=== PATIENT | male | born 1945 | race Caucasian/White ===

== ENCOUNTER 2017-04-05 04:13 | Inpatient (IN) | payer OTHER ==
[~2017-04-05] VITALS: Ht 175.3 cm; Wt 90.2 kg
[2017-04-05] VITALS (9 sets, daily range): BP systolic 135–209; BP diastolic 68–115; PULSE 59–76; TEMP 36.3–36.9; O2SAT 97; Ht 175.3 cm; Wt 90.2 kg
[~2017-04-05 04:13] MED LIST: ALLO300T2 PO
[2017-04-05] MEDS ORDERED: METOPROLOL TARTRATE 1 MG/ML VIAL IV STA (04:30)
[2017-04-05] MEDS ORDERED: NITROGLYCERIN OINT 2% 1GM PACKET EXT ONE (04:30)
[2017-04-05 04:39] LABS: BASO % 0.4 %; BASO ABS # 0.02 K/uL (0-0.2); COMPLETE YES; EOS % 1.2 %; HEMATOCRIT 43.3 % (42-52); IG% 0.4 %; LYMPH % 37.3 %; LYMPH ABS # 2.11 K/uL (1.2-3.4); MEAN CORPUSCULAR HEMOGLOBIN 33.3 pg (25-34); MONO % 6.5 %; NEUT % 54.2 %; PLATELET COUNT 190 K/uL (130-400); RED BLOOD COUNT 4.81 M/uL (4.7-6.1); WHITE BLOOD COUNT 5.65 K/uL (4.8-10.8)
[2017-04-05 05:07] LABS: INR 0.9 (0.9-1.1); PROTHROMBIN TIME (PATIENT) 9.4 SECONDS (9.0-12.0)
[2017-04-05 05:13] LABS: BUN/CREATININE RATIO 14.6 (10-20); CALCIUM 8.7 mg/dl (8.5-10.1); CREATININE 1.3 mg/dl (0.60-1.40); THYROID STIMULATING HORMONE 4.28 uIu/ml (0.300-4.500)
[2017-04-05 05:39] LABS: ALB/GLOB RATIO 1.2 (0.9-2); MAGNESIUM 1.9 mg/dl (1.8-2.4); POTASSIUM 3.6 mmol/L (3.5-5.1)
[2017-04-05] MEDS ORDERED: LORAZEPAM 2 MG/ML 1 ML VIAL IV PRN (06:15)
[2017-04-05] MEDS ORDERED: ACETAMINOPHEN 325 MG TAB PO PRN (06:15)
[2017-04-05] MEDS ORDERED: TRAMADOL HCL 50 MG TAB PO PRN (06:15)
[2017-04-05] MEDS ORDERED: ONDANSETRON INJ 2 MG/ML 2 ML VIAL IV PRN (06:15)
[2017-04-05] MEDS ORDERED: MoRPHine SULFATE 4 MG/ML 1 ML CARP\\VIAL IV PRN (06:15)
[2017-04-05] MEDS ORDERED: NITROGLYCERIN 0.4 MG SL PER TAB CHARGE SL PRN (06:15)
--- NOTE | 2017-04-05 06:16 | EMERGENCY ROOM VISIT NOTE ---
History First contact with patient: 04:22 Chief Complaint: CHEST PAIN Stated Complaint: CHEST PAIN Nursing Triage Summary: patient states had midsternal chest pain and sweats that started around 0300. CP went away and came back shortly after. pain does not radiate. states patient was having SOB for last few weeks as well History of Present Illness The patient is a 71 year old male who presents to the Emergency Room with complaints of midsternal chest pain and diaphoresis that began about 90 minutes prior to arrival. The patient states that he woke up to use the bathroom, and developed this pain shortly thereafter. The pain did not radiate to the neck, but he did state there may have been some strain sensation in his left arm. The patient states that this began around 3 AM, and he lay back down. The patient's symptoms persisted at 4 AM, however now they were worse. He took several regular strength aspirin and now presents to the ER for evaluation. The patient himself does not have a history of cardiac disease or diabetes, but admittedly he does not regularly follow with his doctor either. The patient has a strong family history of cardiac disease with his father having his first heart attack in his early 60s. The patient does not have headache, neck pain, dizziness, or abdominal pain. He has not had symptoms like this in the past. His discomfort is improved from his initial pain, but is still rated a 6/10. Review of Systems More than 10 systems were reviewed and otherwise negative with the exception of history of present illness. Past Medical/Surgical History Medical Problems: (1) Chest pain (2) Hypertensive urgency (3) No Known Active Medical Problems Family History No pertinent family history Family history of cardiac disease Social History Smoking Status: Never Smoker Marital Status: Housing Status: lives with family Current/Historical Medications Scheduled PRN Allopurinol (Zyloprim), 300 MG PO DAILY PRN for gout flares Physical Exam Vital Signs Date Time Temp Pulse Resp B/P (MAP) Pulse Ox O2 Delivery O2 Flow Rate FiO2 04/05/17 05:30 159/90 04/05/17 05:16 158/91 04/05/17 05:13 73 18 94 Room Air 04/05/17 05:01 166/97 04/05/17 04:56 163/92 04/05/17 04:51 165/94 04/05/17 04:46 177/90 04/05/17 04:43 79 16 95 Room Air 04/05/17 04:41 176/99 04/05/17 04:38 193/94 04/05/17 04:34 198/110 04/05/17 04:30 Room Air 04/05/17 04:30 81 193/94 04/05/17 04:23 96 04/05/17 04:22 Room Air 04/05/17 04:22 36.5 94 18 217/113 96 Room Air 04/05/17 04:21 217/113 Physical Exam VITALS: Vitals are noted on the nurse's note and reviewed by myself. Vital signs with notable hypertension and mild tachycardia GENERAL: Well-developed, well-nourished, white male, resting comfortably in his emergency department bed. He is cooperative with the examination. NECK: Supple without nuchal rigidity. No lymphadenopathy. No thyromegaly. Cervical spine is nontender. HEART: Regular rate and rhythm without murmurs gallops or rubs. LUNGS: Clear to auscultation bilaterally without wheezes, rales or rhonchi. No retractions or accessory muscle use. ABDOMEN: Positive normal bowel sounds x 4. Soft, nontender, without masses or organomegaly. No guarding or rebound tenderness. MUSCULOSKELETAL: No muscle atrophy, erythema, or edema noted. Full range of motion without joint tenderness in all extremities Medical Decision & Procedures Laboratory Results 04/05/17 04:25 Red Blood Count 4.81, Mean Corpuscular Volume 90.0, Mean Corpuscular Hemoglobin 33.3, Mean Corpuscular Hemoglobin Concent 37.0, Mean Platelet Volume 10.0, Neutrophils (%) (Auto) 54.2, Lymphocytes (%) (Auto) 37.3, Monocytes (%) (Auto) 6.5, Eosinophils (%) (Auto) 1.2, Basophils (%) (Auto) 0.4, Neutrophils # (Auto) 3.06, Lymphocytes # (Auto) 2.11, Monocytes # (Auto) 0.37, Eosinophils # (Auto) 0.07, Basophils # (Auto) 0.02 04/05/17 04:25 Test 04/05/17 04:25 04/05/17 04:31 White Blood Count 5.65 K/uL (4.8-10.8) Red Blood Count 4.81 M/uL (4.7-6.1) Hemoglobin 16.0 g/dL (14.0-18.0) Hematocrit 43.3 % (42-52) Mean Corpuscular Volume 90.0 fL (80-100) Mean Corpuscular Hemoglobin 33.3 pg (25-34) Mean Corpuscular Hemoglobin Concent 37.0 g/dl (32-36) Platelet Count 190 K/uL (130-400) Mean Platelet Volume 10.0 fL (7.4-10.4) Neutrophils (%) (Auto) 54.2 % Lymphocytes (%) (Auto) 37.3 % Monocytes (%) (Auto) 6.5 % Eosinophils (%) (Auto) 1.2 % Basophils (%) (Auto) 0.4 % Neutrophils # (Auto) 3.06 K/uL (1.4-6.5) Lymphocytes # (Auto) 2.11 K/uL (1.2-3.4) Monocytes # (Auto) 0.37 K/uL (0.11-0.59) Eosinophils # (Auto) 0.07 K/uL (0-0.5) Basophils # (Auto) 0.02 K/uL (0-0.2) RDW Standard Deviation 42.1 fL (36.4-46.3) RDW Coefficient of Variation 13.0 % (11.5-14.5) Immature Granulocyte % (Auto) 0.4 % Immature Granulocyte # (Auto) 0.02 K/uL (0.00-0.02) Prothrombin Time 9.4 SECONDS (9.0-12.0) Prothromb Time International Ratio 0.9 (0.9-1.1) Activated Partial Thromboplast Time 26.8 SECONDS (21.0-31.0) Partial Thromboplastin Ratio 1.0 Anion Gap 9.0 mmol/L (3-11) Est Creatinine Clear Calc Drug Dose 57.2 ml/min Estimated GFR () 62.7 Estimated GFR (Non- 54.1 BUN/Creatinine Ratio 14.6 (10-20) Calcium Level 8.7 mg/dl (8.5-10.1) Magnesium Level 1.9 mg/dl (1.8-2.4) Total Bilirubin 0.5 mg/dl (0.2-1) Aspartate Amino Transf (AST/SGOT) 40 U/L (15-37) Alanine Aminotransferase (ALT/SGPT) 54 U/L (12-78) Alkaline Phosphatase 105 U/L (45-117) Total Protein 7.6 gm/dl (6.4-8.2) Albumin 4.2 gm/dl (3.4-5.0) Globulin 3.4 gm/dl (2.5-4.0) Albumin/Globulin Ratio 1.2 (0.9-2) Lipase 121 U/L (73-393) Thyroid Stimulating Hormone (TSH) 4.280 uIu/ml (0.300-4.500) Chemistry Specimen Hemolysis Bedside Troponin I 0.030 ng/ml (0-0.045) Medications Administered Medications (Trade) Dose Ordered Sig/Hosea Route Start Time Stop Time Status Last Admin Dose Admin Nitroglycerin (Nitroglycerin 2% Oint) 1 inch NOW ONCE EXT 04/05/17 04:30 04/05/17 05:59 DC 04/05/17 04:30 1 INCH Metoprolol Tartrate (Lopressor Iv) 5 mg NOW STAT IV 04/05/17 04:30 04/05/17 04:31 DC 04/05/17 04:30 5 MG ED Course Physical exam and history were performed. Nursing notes, EMR, and Medication List were personally reviewed. Patient appears to have chest pain symptoms for the past 90 minutes. EKG was performed and was sinus tachycardia at just over 100 beats per minute. More concerning is the patient appears to have ischemic findings in the lateral leads. IV access was established and labs were obtained. The patient was given 1 inch Nitropaste and 5 mg IV Lopressor. He was hydrated with normal saline and placed on the cardiac technologist. Chest x-ray was performed and does not show acute findings. The case was immediately discussed with my attending physician, Dr. Marcus, who also independently evaluated the patient and remain closely involved in patient care and decision making. The patient's blood work is as above and was reviewed. He does not have a significantly elevated white blood cell count, gross anemia, bandemia, or significant electrolyte imbalance. Lipase and transaminases are nondiagnostic. Troponin 1 is negative. Roughly 40 minutes after the first EKG and initiation of Nitropaste and Lopressor the patient had significant improvement of his blood pressure, which remained in the 160s over 90s. A second EKG was performed 40 minutes after the first, and this did show essentially resolution of the ST abnormalities that were initially appreciated. Overall there is concern the patient may be exhibiting unstable angina. We have a strong concern for impending cardiac event, and the patient does not appear well for discharge home. The case was discussed with the on-call hospitalist, Dr. Kahn, who agreed to evaluate the patient here in the department. Evidently Dr Kahn will be involving cardiology this morning regarding the patient. Please see their dictation for further patient course and disposition. The chart was completed utilizing [employer] Speech Voice Recognition Software. Grammatical errors, random word insertions, pronoun errors, and incomplete sentences are an occasional consequence of this system due to software limitations, ambient noise, and hardware issues. Any formal questions or concerns about the content, text, or information contained within the body of this dictation should be directly addressed to the provider for clarification. . Medical Decision Differential diagnosis includes, but is not limited to: Myocardial infarction, dysrhythmia, pericarditis, pneumothorax, aortic aneurysm/dissection, DVT/PE, anxiety, GERD, PUD, electrolyte imbalance, thyroid disorder, pneumonia, bronchitis, pancreatitis, and others [place] Drug Monitoring Program Search Results: patient reviewed within database, no issues identified Medication Reconcilliation Current Medication List: was personally reviewed by me Blood Pressure Screening Patient's blood pressure: Elevated blood pressure Impression Primary Impression: Central chest pain Additional Impressions: Hypertensive urgency EKG abnormalities Departure Information Referrals Jerry Landeros D.O. (PCP) Patient Instructions [facility] Problem Qualifiers
--- NOTE | 2017-04-05 07:08 | HISTORY & PHYSICAL EXAMINATION ---
DATE OF ADMISSION: 04/05/2017 PRIMARY CARE DOCTOR: Dr. Landeros (although he has not met him) (Last PCP visit was in April 2014. Last PCP has since retired.) CHIEF COMPLAINT: Chest pain. HISTORY OF PRESENT ILLNESS: History is obtained from the patient records. Medical history is significant for borderline hypertension as per patient, hyperlipidemia, gout as per records. This morning, the patient woke up with substernal chest discomfort non-radiating , better with taking deep breaths, some shortness of breath and diaphoresis. He took some aspirin at home. At the Emergency Room, systolic blood pressure 210s. Relief of chest pain with Lopressor and nitroglycerin. Admits to some shortness of breath on exertion of late. As per the patient's , some intake of potato chips. Patient's also says the patient stops breathing during sleep from time to time. MEDICAL HISTORY: As above. April 2013, stress echo for a physical was negative for inducible ischemia, mildly increased LV wall thickness, EF 55%. SURGERIES: orthopedic procedure. HOME MEDICATIONS: Allopurinol. ALLERGIES: No known drug allergies. FAMILY HISTORY: Heart disease, peripheral vascular disease. 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 REVIEW OF SYSTEMS: As per HPI. all other ROS negative. PHYSICAL EXAMINATION: VITAL SIGNS: Blood pressure was noted to be 217/113, later 159/90, pulse rate 70, RR 18, temperature 36.5, sats 96 on room air. GENERAL: Noted to be obese, slightly anxious, no distress. SKIN: Normal color. HEENT: Partial alopecia. Pale palpebral conjunctivae. Dry mucosa. NECK: No JVD. Supple. CHEST: Clear to auscultation. HEART: Regular rate and rhythm. ABDOMEN: Soft. EXTREMITIES: No edema, no tenderness. NEUROLOGIC: No gross focality. LABORATORY DATA: Hemoglobin was noted to be 16, hematocrit 40.2, white cell count 5.6, platelets 190. Sodium 140, potassium 3.6, chloride 108, CO2 24, BUN 19, creatinine 1.3, glucose 127. Troponin 0.03. IMAGING: Chest x-ray as per my interpretation, cardiomegaly. EKG as per my interpretation, normal sinus rhythm, ST depression on the lateral leads. ASSESSMENT: 1. Chest pain likely from hypertensive urgency HTN likely long-standing with cardiomegaly on chest x-ray and LVH from 2013 stress echo ? acute coronary syndrome. 2. Possible sleep-disordered breathing 3. Hyperlipidemia as per records. PLAN: Observation PCU Initiate lisinopril for blood pressure control Aspirin for CAD prevention until ACS ruled out follow troponin, 2D echo, chest pain. [facility] Cardio consult for chest pain as per the patient/family request Outpatient sleep study Check lipid profile DVT prophylaxis, Lovenox subQ. Full code. MTDD
[2017-04-05] MEDS ORDERED: POTASSIUM CHLORIDE 10 MEQ TABCR PO ONE (08:00)
[2017-04-05] MEDS ORDERED: LISINOPRIL 5 MG TAB PO ONE (08:00)
[2017-04-05] MEDS ORDERED: LACTATED RINGER'S 1000ML 1,000 ML IV ONE (08:00)
--- NOTE | 2017-04-05 08:06 | DIAGNOSTIC IMAGING REPORT ---
CHEST ONE VIEW PORTABLE HISTORY: Atypical chest pain COMPARISON: Chest 04/08/2016. FINDINGS: No pleural effusions. No pneumothorax. The lungs are clear. No evidence for pulmonary edema. The heart remains borderline enlarged. IMPRESSION: No significant change compared to the prior study. No acute process. Electronically signed by: Navi Francisco M.D. 04/05/2017 8:05 AM Dictated Date/Time: 04/05/2017 8:04 AM
[2017-04-05] MEDS ORDERED: ENOXAPARIN 40 MG/0.4 ML SYR SC SCH (09:00)
[2017-04-05] MEDS ORDERED: PERFLUTREN LIPID MICROSPHERE (DEFINITY) IV ONE (09:44)
[2017-04-05] MEDS ORDERED: LISINOPRIL 10 MG TAB PO ONE (10:45)
--- NOTE | 2017-04-05 11:03 | CARDIOLOGY CONSULTATION ---
DATE OF CONSULTATION: 04/05/2017 CONSULTATION FOR: [facility] REASON FOR CONSULTATION: Chest pain. HISTORY OF PRESENT ILLNESS: This is a 71-year-old male with no prior history of heart disease. Early this morning, he awoke with what he describes as severe retrosternal chest discomfort that lasted for several hours before presenting to the Emergency Department. His first EKG suggests possible ST segment depressions in the lateral leads consistent with ischemia. He also has Q-waves in the inferior leads which may suggest an old inferior wall infarct, although the patient states that his EKG has been normal in the past. Of note, also is that his second EKG in the Emergency Department shows no ST changes. He has been pain free since admission. He denies diabetes or hypercholesterolemia. He also denies hypertension but on presentation to the Emergency Department, he was markedly hypertensive. He relates a strong family history of heart disease. ALLERGIES: No known medical allergies. PAST MEDICAL HISTORY: As outlined above, the patient has no significant cardiac history. He denies hypertension, but was markedly hypertensive in the office. He has no history of diabetes, kidney disease or strokes. He states that he has occasional gout. SOCIAL HISTORY: The patient never smoked. FAMILY MEDICAL HISTORY: As outlined above, multiple members of his paternal family have history of heart disease. REVIEW OF SYSTEMS: A 10-point review of systems is negative except for the history of chief complaint. PHYSICAL EXAMINATION: GENERAL: He is alert and oriented, in no acute distress. VITAL SIGNS: Blood pressure is 166/98, pulse is regular at 78 beats per minute and he is afebrile. HEENT: Normocephalic. Pupils are equal and reactive to light. Extraocular muscles intact bilaterally. NECK: The neck veins are flat. Carotids have good upstrokes bilaterally without bruits. Thyroid is nonpalpable. RESPIRATORY: Breath sounds equal bilaterally and clear to auscultation. CARDIOVASCULAR: Heart has regular rhythm. Normal S1, S2. No S3, S4. No cardiac rubs or murmurs. GASTROINTESTINAL: Abdomen is soft, nontender without organomegaly. EXTREMITIES: Free of edema, digit clubbing, or cyanosis. NEUROLOGIC: Grossly intact. SKIN: Warm to touch. LYMPH NODES: Negative to palpation. LABORATORY DATA: First set of cardiac markers are negative. IMPRESSION: 1. Chest pain. 2. Hypertension. RECOMMENDATIONS: If the second set of cardiac markers is negative, then I felt comfortable we can proceed with a screening exercise stress echocardiogram. We will review the resting study before he will exercise on a treadmill. I suspect that he has had a long history of undertreated hypertension and his chest pain may be due to demand ischemia.
--- NOTE | 2017-04-05 11:32 | Progress Note ---
Internal Med Progress Note Date of Service: Apr 05, 2017. Provider Documentation: SUBJECTIVE: Seen and examined at bedside Denies chest pain, SOB, dizziness Has mild headache, denies blurry vision Family at bedside OBJECTIVE: Vital Signs-as noted below Physical Exam: General Appearance:Moderately built and nourished, no apparent distress Head: normocephalic, Atraumatic Eyes: normal inspection, EOMI, PERRL Neck: supple, Trachea midline Respiratory/Chest: Normal breath sounds, CTA Cardiovascular: S1, S2, No murmur Abdomen/GI:Soft, Non tender, Bowel sounds present Extremities/Musculoskelatal:normal inspection, no edema Neurologic/Psych:grossly no focal neurological deficits Skin: normal color, warm Lab data as noted below. ASSESSMENT & PLAN: Hypertensive Urgency Chest Pain Presented with chest pain and ST depression in lateral leads which normalized on repeat EKG Troponin: 0.03, 1.2 likely demand Ischemia cardiac enzymes trending up May need stress test Continue lisinopril Appreciate cardiology input Plan for cardiac cath tomorrow AM May need sleep study as outpatient Hyperlipidemia as per records. Lipid panel pending H/O Gout: Stable since many years Not on meds currently DVT px: Lovenox subQ. Code Status: Full code Disposition: Monitor in Tele Vital Signs: Date Time Temp Pulse Resp B/P (MAP) Pulse Ox O2 Delivery O2 Flow Rate FiO2 04/05/17 13:52 62 135/68 (90) 04/05/17 12:00 Room Air 04/05/17 10:55 75 209/115 (146) 04/05/17 07:30 36.4 76 18 190/96 Room Air 04/05/17 06:35 67 14 96 Room Air 04/05/17 06:31 166/98 04/05/17 06:05 78 15 96 Room Air 04/05/17 06:01 173/88 04/05/17 05:46 170/91 04/05/17 05:35 65 20 94 Room Air 04/05/17 05:30 159/90 04/05/17 05:16 158/91 04/05/17 05:13 73 18 94 Room Air 04/05/17 05:01 166/97 04/05/17 04:56 163/92 04/05/17 04:51 165/94 04/05/17 04:46 177/90 04/05/17 04:43 79 16 95 Room Air 04/05/17 04:41 176/99 04/05/17 04:38 193/94 04/05/17 04:34 198/110 04/05/17 04:30 Room Air 04/05/17 04:30 81 193/94 04/05/17 04:23 96 04/05/17 04:22 Room Air 04/05/17 04:22 36.5 94 18 217/113 96 Room Air 04/05/17 04:21 217/113 04/05/17 00:00 60 170/92 (118) Lab Results: Results Past 24 Hours Test 04/05/17 04:25 04/05/17 04:31 04/05/17 10:24 04/05/17 12:10 Range/Units White Blood Count 5.65 4.8-10.8 K/uL Red Blood Count 4.81 4.7-6.1 M/uL Hemoglobin 16.0 14.0-18.0 g/dL Hematocrit 43.3 42-52 % Mean Corpuscular Volume 90.0 80-100 fL Mean Corpuscular Hemoglobin 33.3 25-34 pg Mean Corpuscular Hemoglobin Concent 37.0 32-36 g/dl Platelet Count 190 130-400 K/uL Mean Platelet Volume 10.0 7.4-10.4 fL Neutrophils (%) (Auto) 54.2 % Lymphocytes (%) (Auto) 37.3 % Monocytes (%) (Auto) 6.5 % Eosinophils (%) (Auto) 1.2 % Basophils (%) (Auto) 0.4 % Neutrophils # (Auto) 3.06 1.4-6.5 K/uL Lymphocytes # (Auto) 2.11 1.2-3.4 K/uL Monocytes # (Auto) 0.37 0.11-0.59 K/uL Eosinophils # (Auto) 0.07 0-0.5 K/uL Basophils # (Auto) 0.02 0-0.2 K/uL RDW Standard Deviation 42.1 36.4-46.3 fL RDW Coefficient of Variation 13.0 11.5-14.5 % Immature Granulocyte % (Auto) 0.4 % Immature Granulocyte # (Auto) 0.02 0.00-0.02 K/uL Prothrombin Time 9.4 9.0-12.0 SECONDS Prothromb Time International Ratio 0.9 0.9-1.1 Activated Partial Thromboplast Time 26.8 21.0-31.0 SECONDS Partial Thromboplastin Ratio 1.0 Sodium Level 140 136-145 mmol/L Potassium Level 3.6 3.5-5.1 mmol/L Chloride Level 108 98-107 mmol/L Carbon Dioxide Level 24 21-32 mmol/L Anion Gap 9.0 3-11 mmol/L Blood Urea Nitrogen 19 7-18 mg/dl Creatinine 1.30 0.60-1.40 mg/dl Est Creatinine Clear Calc Drug Dose 57.2 ml/min Estimated GFR () 62.7 Estimated GFR (Non- 54.1 BUN/Creatinine Ratio 14.6 10-20 Random Glucose 127 70-99 mg/dl Calcium Level 8.7 8.5-10.1 mg/dl Magnesium Level 1.9 1.8-2.4 mg/dl Total Bilirubin 0.5 0.2-1 mg/dl Aspartate Amino Transf (AST/SGOT) 40 15-37 U/L Alanine Aminotransferase (ALT/SGPT) 54 12-78 U/L Alkaline Phosphatase 105 45-117 U/L Total Protein 7.6 6.4-8.2 gm/dl Albumin 4.2 3.4-5.0 gm/dl Globulin 3.4 2.5-4.0 gm/dl Albumin/Globulin Ratio 1.2 0.9-2 Lipase 121 73-393 U/L Thyroid Stimulating Hormone (TSH) 4.280 0.300-4.500 uIu/ml Chemistry Specimen Hemolysis Bedside Troponin I 0.030 0-0.045 ng/ml Troponin I 1.200 0-0.045 ng/ml Urine Color YELLOW Urine Appearance CLEAR CLEAR Urine pH 5.5 4.5-7.5 Urine Specific [place] 1.014 1.000-1.030 Urine Protein NEG NEG Urine Glucose (UA) NEG NEG Urine Ketones NEG NEG Urine Occult Blood NEG NEG Urine Nitrite NEG NEG Urine Bilirubin NEG NEG Urine Urobilinogen NEG NEG Urine Leukocyte Esterase NEG NEG Test 04/05/17 14:30 04/05/17 14:45 Range/Units Creatine Kinase MB Ratio 0-3.0 Creatine Kinase MB 9.1 0.5-3.6 ng/ml Troponin I 1.740 0-0.045 ng/ml
--- NOTE | 2017-04-05 12:26 | ECHOCARDIOGRAM REPORT ---
*NOTICE TO RECEIVING DEMOCRAT AGENCY This information is strictly Confidential and protected under [place] law. [place] law prohibits you from making any further disclosure of this information unless further disclosure is expressly permitted by the written consent of the person to whom it pertains or is authorized by law. A general authorization for the release of medical or other information is not sufficient for this purpose. Hospital accepts no responsibility if the information is made available to any other person, INCLUDING THE PATIENT. Interpretation Summary * Name: LIANNA MURRAY Study Date: 04/05/2017 08:58 AM BP: 166/98 mmHg * Patient Location: [facility]- HR: 67 * : 1945 (M/d/yyyy) Gender: Male Height: 69 in * Age: 71 yrs Ethnicity: [place] Weight: 206 lb * Ordering Physician: Gaurav Kahn * Referring Physician: Self, Referred * Performed By: Cinthya Gregg RDCS * * Reason For Study: CHEST PAIN * BSA: 2.1 m2 * -- Conclusions -- * The left ventricle is normal in size. * The left ventricular wall motion is normal. * Ejection Fraction = 65-70%. * The right ventricular systolic function is normal. * The left atrium is moderately dilated. * Right atrial size is normal. * No significant valvular pathology. Procedure Details * A complete two-dimensional transthoracic echocardiogram was performed (2D, M-mode, Doppler and color flow Doppler). * A contrast injection of Definity was performed to improve assessment of LV function. * Contrast was injected into an intravenous site in the left arm. * One vial of Definity ultrasound contrast was diluted in normal saline to a total volume of 10 ml. A total of '2' ml of solution was administered during imaging. * Lot # [id number] of Definity utilized for procedure. * Expiration date MAY 09. * The attending nurse who injected the contrast agent was ANDRESSA ÁLVAREZ RN. Left Ventricle * The left ventricle is normal in size. * There is normal left ventricular wall thickness. * Ejection Fraction = 65-70%. * Left ventricular systolic function is normal. * The left ventricular wall motion is normal. Right Ventricle * The right ventricle is normal size. * The right ventricular systolic function is normal. Atria * The left atrium is moderately dilated. * Right atrial size is normal. * The interatrial septum is intact with no evidence for an atrial septal defect. Mitral Valve * The mitral valve anatomy is normal. * There is trace mitral regurgitation. Tricuspid Valve * The tricuspid valve anatomy is normal. * Significant tricuspid regurgitation is absent. Aortic Valve * The aortic valve is tricuspid. The leaflet thickness if normal. There is no aortic stenosis, and no significant insufficiency. * No hemodynamically significant valvular aortic stenosis. * There is no significant aortic regurgitation. Pulmonic Valve * The pulmonic valve is not well visualized. Great Vessels * The aortic root and proximal ascending aorta are normal sized. Pericardium/Pleural * There is no pericardial effusion. MMode 2D Measurements and Calculations IVSd 1.4 cm IVSs 1.8 cm LVIDd 3.8 cm LVIDs 2.8 cm LVPWd 1.6 cm LVPWs 1.8 cm IVS/LVPW 0.88 FS 27.4 % EDV(Teich) 63.6 ml ESV(Teich) 29.2 ml EF(Teich) 54.0 % EDV(cubed) 56.7 ml ESV(cubed) 21.7 ml EF(cubed) 61.8 % % IVS thick 29.2 % % LVPW thick 11.7 % LV mass(C)d 219.9 grams LV mass(C)dI 105.1 grams/m\S\2 LV mass(C)s 199.0 grams LV mass(C)sI 95.1 grams/m\S\2 SV(Teich) 34.4 ml SI(Teich) 16.4 ml/m\S\2 SV(cubed) 35.0 ml SI(cubed) 16.8 ml/m\S\2 Ao root diam 3.1 cm Ao root area 7.7 cm\S\2 LA dimension 4.2 cm LA/Ao 1.4 LVAd ap4 35.3 cm\S\2 LVLd ap4 8.6 cm EDV(MOD-sp4) 113.7 ml EDV(sp4-el) 122.2 ml LVAs ap4 18.6 cm\S\2 LVLs ap4 7.4 cm ESV(MOD-sp4) 37.1 ml ESV(sp4-el) 40.1 ml EF(MOD-sp4) 67.4 % EF(sp4-el) 67.1 % LVAd ap2 32.9 cm\S\2 LVLd ap2 8.7 cm EDV(MOD-sp2) 103.1 ml EDV(sp2-el) 106.2 ml LVAs ap2 16.8 cm\S\2 LVLs ap2 7.4 cm ESV(MOD-sp2) 30.5 ml ESV(sp2-el) 32.3 ml EF(MOD-sp2) 70.4 % EF(sp2-el) 69.6 % LVLd %diff 0.08 % EDV(MOD-bp) 109.5 ml LVLs %diff 1.1 % ESV(MOD-bp) 33.4 ml EF(MOD-bp) 69.5 % SV(MOD-sp4) 76.6 ml SI(MOD-sp4) 36.6 ml/m\S\2 SV(MOD-sp2) 72.6 ml SI(MOD-sp2) 34.7 ml/m\S\2 SV(MOD-bp) 76.1 ml SI(MOD-bp) 36.4 ml/m\S\2 SV(sp4-el) 82.0 ml SI(sp4-el) 39.2 ml/m\S\2 SV(sp2-el) 73.9 ml SI(sp2-el) 35.3 ml/m\S\2 Doppler Measurements and Calculations MV E max amber 84.9 cm/sec MV A max amber 66.6 cm/sec MV E/A 1.3 MV dec time 0.19 sec Ao V2 max 110.2 cm/sec Ao max PG 4.9 mmHg Ao max PG (full) 1.4 mmHg LV V1 max PG 3.4 mmHg LV V1 max 92.5 cm/sec TR max amber 271.8 cm/sec
[2017-04-05 12:39] LABS: URINE APPEARANCE CLEAR (CLEAR); URINE BILIRUBIN NEG (NEG); URINE COLOR YELLOW; URINE NITRITE NEG (NEG); URINE PH 5.5 (4.5-7.5); URINE SPECIFIC GRAVITY 1.014 (1.000-1.030); UROBILINOGEN NEG (NEG); ZZUR CULT IF INDIC CLEAN CATCH NO
[2017-04-05 12:40] LABS: MANUAL MICROSCOPIC REQUIRED? NO; REVIEW REQ? NO
[2017-04-05] MEDS ORDERED: DC ALL ANTICOAGULANTS ONE (12:45)
--- NOTE | 2017-04-05 12:58 | PROGRESS NOTE ---
DATE: 04/05/2017 Mr. Brown had an elevation in his cardiac troponins to 1.2. This finding, in combination with his first EKG, is worrisome for potential of hemodynamically significant coronary artery disease. I have recommended not to do the stress test today. We will work on getting his blood pressure down and plan on proceeding with a cardiac catheterization in the morning. I have explained the risk, benefit and intent of the procedure to Mr. Brown including the potential for catheter based intervention such as balloon angioplasty or intercoronary stents. The patient is willing to proceed and provided he has no additional chest pain or clinical status change, it will be done in the morning.
[2017-04-06] VITALS (18 sets, daily range): BP systolic 106–180; BP diastolic 51–94; PULSE 55–88; TEMP 36.4–37; O2SAT 95–99
[2017-04-06 06:15] LABS: BASO % 0.5 %; BASO ABS # 0.03 K/uL (0-0.2); COMPLETE YES; EOS % 1.4 %; HEMATOCRIT 39.8 % (42-52); IG% 0.4 %; LYMPH % 33.5 %; LYMPH ABS # 1.88 K/uL (1.2-3.4); MEAN CELL VOLUME 91.1 fL (80-100); MEAN CORPUSCULAR HGB CONC 36.2 g/dl (32-36); MEAN PLATELET VOLUME 10.6 fL (7.4-10.4); MONO % 7.7 %; NEUT % 56.5 %; PLATELET COUNT 161 K/uL (130-400); RED BLOOD COUNT 4.37 M/uL (4.7-6.1); WHITE BLOOD COUNT 5.61 K/uL (4.8-10.8)
[2017-04-06 06:55] LABS: BUN/CREATININE RATIO 17.5 (10-20); CALCIUM 8.7 mg/dl (8.5-10.1); CREATININE 1.1 mg/dl (0.60-1.40)
[2017-04-06 06:59] LABS: CHOLESTEROL/HDL RATIO 9.2
[2017-04-06] MEDS ORDERED: HEPARIN SOD (PORCINE) 1000 UNIT/ML 10 ML VIAL ONE (08:51)
[2017-04-06] MEDS ORDERED: NiCARDipine HCL INJ 2.5 MG/ML 10 ML AMP ONE (08:51)
[2017-04-06] MEDS ORDERED: NITROGLYCERIN/D5W 100MCG/ML 20ML SYR ONE (08:52)
[2017-04-06] MEDS ORDERED: MIDAZOLAM HCL 1 MG/ML 2ML VIAL ONE (08:53)
[2017-04-06] MEDS ORDERED: FENTANYL CITRATE INJ 50 MCG/1 ML 2 ML VIAL ONE (08:53)
[2017-04-06] MEDS ORDERED: LISINOPRIL 20 MG TAB PO SCH (09:00)
[2017-04-06] MEDS ORDERED: ASPIRIN 325 MG ECTAB PO SCH (09:00)
[2017-04-06] MEDS ORDERED: LISINOPRIL 5 MG TAB PO SCH (09:00)
[2017-04-06] MEDS ORDERED: SODIUM CHLORIDE 0.9% 1000ML 1,000 ML IV SCH ×2 (09:26)
[2017-04-06] MEDS ORDERED: SODIUM CHLORIDE 0.9% 1000ML 250 ML IV PRN (09:26)
[2017-04-06] MEDS ORDERED: ONDANSETRON INJ 2 MG/ML 2 ML VIAL IV PRN (09:30)
[2017-04-06] MEDS ORDERED: ACETAMINOPHEN 325 MG TAB PO PRN (09:30)
[2017-04-06] MEDS ORDERED: ATROPINE SULFATE 0.1 MG/ML 5ML SYR IV PRN (09:30)
--- NOTE | 2017-04-06 09:52 | Cardiac Catheterization ---
Procedure Note Procedure Date Apr 06, 2017. Pre-Procedure Diagnosis Non STEMI AUC Score 9 Post-Procedure Diagnosis Severe CAD, Normal LV Systolic Function Procedure(s) Performed Coronary Angiography, Left Heart Cath, LV Angiography Excellence Specialist Dr. Burrows Powerhouse Helper(s) None Estimated Blood Loss None Medication(s) Heparin, Versed, Lidocaine 1% Summary of Findings Severe 3 vessel CAD Hemodynamics Rest Ao: 123/66 Final Ao: 159/76 LV: 155/54 Recommendations CABG Specimens None Radiation Exposure (mGy) 1592 Contrast (mls) 115 Fluids (cc crystalloids) 56 Disposition PCU ACC Data Cardiac Status Clinical evaluation leading to the procedure CAD Presntation: Non STEMI Anginal Classification: CCS II Heart Failure: No Cardiogenic Shock w/in 24Hrs: No Cardiac Arrest w/in 24Hrs: No Imaging studies past 6 months: Yes Stress studies past 6 months: No Cardiac CTA: No Coronary Anatomy Dominant: Left Left Main (% Stenosis): Ostial (50) LAD (% Stenosis): Proximal (90), Mid (90) D1 (% Stenosis): Proximal (80) Circumflex (% Stenosis): Distal (90) OM1 (% Stenosis): Ostial (90) OM2 (% Stenosis): Ostial (90) OM3 (% Stenosis): Proximal (90) RCA (% Stenosis): Mid (100) Left Ventricular Angiography EF (%): 60 Mitral Regurgitation: None Diagnostic Status: Urgent Closure Device Percutaneous Entry Location: Radial Closure Device: Radial Band
--- NOTE | 2017-04-06 10:29 | Progress Note ---
Internal Med Progress Note Date of Service: Apr 06, 2017. Provider Documentation: SUBJECTIVE: Seen and examined at bedside Had Cardiac Cath today which showed severe CAD, 3 vessel disease Denies chest pain, SOB, dizziness currently Family at bedside Planned to be transferred to [facility] today OBJECTIVE: Vital Signs-as noted below Physical Exam: General Appearance:Moderately built and nourished, no apparent distress Head: normocephalic, Atraumatic Eyes: normal inspection, EOMI, PERRL Neck: supple, Trachea midline Respiratory/Chest: Normal breath sounds, CTA Cardiovascular: S1, S2, No murmur Abdomen/GI:Soft, Non tender, Bowel sounds present Extremities/Musculoskelatal:normal inspection, no edema Neurologic/Psych:grossly no focal neurological deficits Skin: normal color, warm Lab data as noted below. ASSESSMENT & PLAN: NSTEMI Hypertensive Urgency Presented with chest pain and ST depression in lateral leads which normalized on repeat EKG Troponin: 0.03, 1.2 Cardiac cath:Severe 3 vessel disease Dominant: Left Left Main (% Stenosis): Ostial (50) LAD (% Stenosis): Proximal (90), Mid (90) D1 (% Stenosis): Proximal (80) Circumflex (% Stenosis): Distal (90) OM1 (% Stenosis): Ostial (90) OM2 (% Stenosis): Ostial (90) OM3 (% Stenosis): Proximal (90) RCA (% Stenosis): Mid (100) Continue ASA, lisinopril Appreciate cardiology input Plan to be transferred to [facility] today for CABG and further management Hyperlipidemia as per records. Lipid panel pending H/O Gout: Stable since many years Not on meds currently DVT px: Lovenox subQ. Code Status: Full code Disposition: Planned to be transferred to [facility] today Vital Signs: Date Time Temp Pulse Resp B/P (MAP) Pulse Ox O2 Delivery O2 Flow Rate FiO2 04/06/17 10:14 36.6 79 18 147/73 (97) 98 Room Air 04/06/17 09:59 36.6 83 20 150/79 (102) 99 Room Air 04/06/17 09:44 36.5 77 20 150/72 (98) 99 Room Air 04/06/17 09:37 60 16 145/78 (100) 96 Room Air 04/06/17 09:22 60 16 151/87 (108) 96 Room Air 04/06/17 08:00 96 Room Air 04/06/17 07:58 37.0 62 18 114/51 (72) 96 04/06/17 04:05 36.4 58 16 106/62 (77) 96 Room Air 04/05/17 23:28 36.6 62 20 138/73 (94) 97 Room Air 04/05/17 20:00 97 04/05/17 19:38 36.3 64 18 150/78 (102) 97 Room Air 04/05/17 17:59 62 155/87 (109) 04/05/17 16:00 Room Air 04/05/17 15:45 36.9 59 18 159/78 (105) 97 Room Air 04/05/17 13:52 62 135/68 (90) 04/05/17 12:00 Room Air 04/05/17 10:55 75 209/115 (146) Lab Results: Results Past 24 Hours Test 04/05/17 12:10 04/05/17 14:30 04/05/17 14:45 04/05/17 20:30 Range/Units Urine Color YELLOW Urine Appearance CLEAR CLEAR Urine pH 5.5 4.5-7.5 Urine Specific [place] 1.014 1.000-1.030 Urine Protein NEG NEG Urine Glucose (UA) NEG NEG Urine Ketones NEG NEG Urine Occult Blood NEG NEG Urine Nitrite NEG NEG Urine Bilirubin NEG NEG Urine Urobilinogen NEG NEG Urine Leukocyte Esterase NEG NEG Creatine Kinase MB Ratio 0-3.0 Creatine Kinase MB 9.1 0.5-3.6 ng/ml Troponin I 1.740 0-0.045 ng/ml Test 04/05/17 20:39 04/06/17 05:30 Range/Units Creatine Kinase MB 7.2 0.5-3.6 ng/ml Troponin I 1.480 0-0.045 ng/ml White Blood Count 5.61 4.8-10.8 K/uL Red Blood Count 4.37 4.7-6.1 M/uL Hemoglobin 14.4 14.0-18.0 g/dL Hematocrit 39.8 42-52 % Mean Corpuscular Volume 91.1 80-100 fL Mean Corpuscular Hemoglobin 33.0 25-34 pg Mean Corpuscular Hemoglobin Concent 36.2 32-36 g/dl Platelet Count 161 130-400 K/uL Mean Platelet Volume 10.6 7.4-10.4 fL Neutrophils (%) (Auto) 56.5 % Lymphocytes (%) (Auto) 33.5 % Monocytes (%) (Auto) 7.7 % Eosinophils (%) (Auto) 1.4 % Basophils (%) (Auto) 0.5 % Neutrophils # (Auto) 3.17 1.4-6.5 K/uL Lymphocytes # (Auto) 1.88 1.2-3.4 K/uL Monocytes # (Auto) 0.43 0.11-0.59 K/uL Eosinophils # (Auto) 0.08 0-0.5 K/uL Basophils # (Auto) 0.03 0-0.2 K/uL RDW Standard Deviation 43.2 36.4-46.3 fL RDW Coefficient of Variation 13.1 11.5-14.5 % Immature Granulocyte % (Auto) 0.4 % Immature Granulocyte # (Auto) 0.02 0.00-0.02 K/uL Sodium Level 142 136-145 mmol/L Potassium Level 4.0 3.5-5.1 mmol/L Chloride Level 112 98-107 mmol/L Carbon Dioxide Level 22 21-32 mmol/L Anion Gap 8.0 3-11 mmol/L Blood Urea Nitrogen 19 7-18 mg/dl Creatinine 1.10 0.60-1.40 mg/dl Est Creatinine Clear Calc Drug Dose 66.4 ml/min Estimated GFR () 76.8 Estimated GFR (Non- 66.2 BUN/Creatinine Ratio 17.5 10-20 Random Glucose 101 70-99 mg/dl Calcium Level 8.7 8.5-10.1 mg/dl Triglycerides Level 529 0-150 mg/dl Cholesterol Level 211 0-200 mg/dl HDL Cholesterol 23 mg/dl LDL Cholesterol, Calculated mg/dl VLDL Cholesterol, Calculated mg/dl Cholesterol/HDL Ratio 9.2
[2017-04-06] MEDS ORDERED: LSN20 PO (10:38)
[2017-04-06] MEDS ORDERED: NTRSLP4 SL (10:38)
[2017-04-06] MEDS ORDERED: ASPEC325 PO (10:38)
[2017-04-06] MEDS ORDERED: LPT40 PO (10:43)
--- NOTE | 2017-04-06 10:47 | Discharge Summary ---
Discharge Summary Date of Service Apr 06, 2017. Discharge Summary Admission Date: Apr 05, 2017 at 05:58 Discharge Date: Apr 06, 2017 Discharge Disposition: Acute care facility Principal Diagnosis: NSTEMI Procedures: Cardiac cath:Severe 3 vessel disease Dominant: Left Left Main (% Stenosis): Ostial (50) LAD (% Stenosis): Proximal (90), Mid (90) D1 (% Stenosis): Proximal (80) Circumflex (% Stenosis): Distal (90) OM1 (% Stenosis): Ostial (90) OM2 (% Stenosis): Ostial (90) OM3 (% Stenosis): Proximal (90) RCA (% Stenosis): Mid (100) Consultations: Cardiology Pending Studies/Follow-Up: Follow up with at [facility] for CABG and further management Medication Reconciliation New Medications: Aspirin (Aspirin) 325 Mg Ectab 325 MG PO QAM for 1 Day Atorvastatin (Atorvastatin Calcium) 40 Mg Tab 40 MG PO QAM for 1 Day, #1 TAB Lisinopril (Lisinopril) 20 Mg Tab 20 MG PO QAM for 1 Day, #1 TAB Nitroglycerin (Nitrostat) 0.4 Mg/1 Tab Subl 0.4 MG SL UD PRN for Chest Pain for 1 Day, #1 Discontinued Medications: Allopurinol (Zyloprim) 300 Mg Tab 300 MG PO DAILY PRN for gout flares Admission Information HPI (per Admitting provider): CHIEF COMPLAINT: Chest pain. HISTORY OF PRESENT ILLNESS: History is obtained from the patient records. Medical history is significant for borderline hypertension as per patient, hyperlipidemia, gout as per records. This morning, the patient woke up with substernal chest discomfort non-radiating , better with taking deep breaths, some shortness of breath and diaphoresis. He took some aspirin at home. At the Emergency Room, systolic blood pressure 210s. Relief of chest pain with Lopressor and nitroglycerin. Admits to some shortness of breath on exertion of late. As per the patient's , some intake of potato chips. Patient's also says the patient stops breathing during sleep from time to time. Physical Exam (per Admitting): PHYSICAL EXAMINATION: VITAL SIGNS: Blood pressure was noted to be 217/113, later 159/90, pulse rate 70, RR 18, temperature 36.5, sats 96 on room air. GENERAL: Noted to be obese, slightly anxious, no distress. SKIN: Normal color. HEENT: Partial alopecia. Pale palpebral conjunctivae. Dry mucosa. NECK: No JVD. Supple. CHEST: Clear to auscultation. HEART: Regular rate and rhythm. ABDOMEN: Soft. EXTREMITIES: No edema, no tenderness. NEUROLOGIC: No gross focality. Hospital Course NSTEMI Hypertensive Urgency Presented with chest pain and ST depression in lateral leads which normalized on repeat EKG Troponin: 0.03, 1.2 Cardiac cath:Severe 3 vessel disease Dominant: Left Left Main (% Stenosis): Ostial (50) LAD (% Stenosis): Proximal (90), Mid (90) D1 (% Stenosis): Proximal (80) Circumflex (% Stenosis): Distal (90) OM1 (% Stenosis): Ostial (90) OM2 (% Stenosis): Ostial (90) OM3 (% Stenosis): Proximal (90) RCA (% Stenosis): Mid (100) Continue ASA, lisinopril Appreciate cardiology input Plan to be transferred to [facility] today for CABG and further management Hyperlipidemia as per records. Lipid panel pending H/O Gout: Stable since many years Not on meds currently DVT px: Lovenox subQ. Code Status: Full code Disposition: Planned to be transferred to [facility] today Total time spent on discharge = 35 minutes This includes examination of the patient, discharge planning, medication reconciliation, and communication with other providers. Discharge Instructions Discharge Instructions Date of Service Apr 06, 2017. Admission Reason for Admission: Chest Pain Discharge Discharge Diagnosis / Problem: NSTEMI Discharge Goals Goal(s): Decrease discomfort, Improve function Activity Recommendations Activity Level: Bedrest . Additional Information Patient informed of condition: Yes Advance Directives: No DNR: No Level of Care: Other (Telemetry) Communicable Disease: No Prognosis: Stable Slade Catheter: No Instructions / Follow-Up Instructions / Follow-Up Follow up with at [facility] for CABG and further management PLEASE REVIEW PAPER MEDICAL RECONCILIATION FOR ACCURATE MEDICATION LIST Home Care: * Take your medications exactly as directed. Don't skip doses. * Remember that recovery after a heart attack takes time. Plan to rest for at lease 4-8 weeks while you recover. Then return to normal activity when your doctor says it's okay. * Ask your doctor about joining a heart rehabilitation program. * Tell your doctor if you are feeling depressed. Feelings of sadness are common after a heart attack, but it is important that you speak to someone if you are feeling overwhelmed by these feelings. * If you are having chest pain, call 911 for an ambulance. Do NOT drive yourself to the hospital. * Ask your family members to learn CPR. * Learn to take your own blood pressure and pulse. Keep a record of your results. Ask your doctor when you should seek emergency medical attention. He or she will tell you which blood pressure reading is dangerous. Lifestyle Changes: * Maintain a healthy weight. Get help to lose any extra pounds. * Cut back on salt. * Limit canned, dried, packaged, and fast foods. * Don't add salt to your food. * Season foods with herbs instead of salt when you cook. * Break the smoking habit. Enroll in a stop-smoking program to improve your chances of success. * Limit fatty foods. * Ask your doctor about having your lipid levels checked regularly. * Build up your activity according to your doctor's recommendation. * Ask your doctor when it's okay to resume sexual activity. * Tell your doctor about any erectile dysfunction (ED) medication you are taking. Some ED medications are not safe if you take certain heart medications. * Try to manage stress. Follow Up: It is important for you to keep your follow up appointments with your medical provider. Current Hospital Diet Patient's current hospital diet: AHA Diet (Heart Healthy) Discharge Diet Recommended Diet: AHA Diet (Heart Healthy) Procedures Procedures Performed: Cardiac Cath Pending Studies Studies pending at discharge: no Laboratory Results Lipid Panel Test 04/06/17 05:30 Range/Units Triglycerides Level 529 H 0-150 mg/dl Cholesterol Level 211 H 0-200 mg/dl HDL Cholesterol 23 mg/dl Cholesterol/HDL Ratio 9.2 LDL Cholesterol, Calculated mg/dl Medical Emergencies . Who to Call and When: Medical Emergencies: If at any time you feel your situation is an emergency, please call 911 immediately. . Non-Emergent Contact Non-Emergency issues call your: Primary Care Provider, Insulation And Flooring Assembler Call Non-Emergent contact if: you have a fever, your pain is not controlled, your pain is worsening, your pain is unusual for you, your pain is concerning you, you have any medication questions . . "Provider Documentation" section prepared by Jasiel Julio. . Core Measure Problem Core Measures: AMI AMI Core Measures Reason no ASA as I/P: Treatment provided - N/A Reason no ASA at D/C: Treatment provided - N/A Reason no statin as I/P: Treatment provided - N/A Reason no statin at D/C: Treatment provided - N/A
--- NOTE | 2017-04-06 10:53 | PROGRESS NOTE ---
DATE: 04/06/2017 SUBJECTIVE: The patient is a 71-year-old male who presented with a non-STEMI and underwent a cardiac catheterization today, which shows significant 3-vessel coronary artery disease. I have reviewed the films with Dr. Dorsey at [facility]. He agrees that the patient will require open heart surgery for coronary artery bypass. The transfer center was contacted and they have agreed to accept the patient at [facility]. He will be transferred later today. He is currently hemodynamically stable and has no complaints. All questions were asked and answered by the patient and his . MARQUISE
[2017-04-06] MEDS ORDERED: ATORVASTATIN 40 MG TAB PO ONE (11:00)
--- NOTE | 2017-04-06 11:26 | Discharge Instructions ---
Discharge Instructions Date of Service Apr 06, 2017. Admission Reason for Admission: Chest Pain Discharge Discharge Diagnosis / Problem: NSTEMI Discharge Goals Goal(s): Decrease discomfort, Improve function Activity Recommendations Activity Level: Bedrest . Additional Information Patient informed of condition: Yes Advance Directives: No DNR: No Level of Care: Other (Telemetry) Communicable Disease: No Prognosis: Stable Slade Catheter: No Instructions / Follow-Up Instructions / Follow-Up Follow up with at [facility] for CABG and further management PLEASE REVIEW PAPER MEDICAL RECONCILIATION FOR ACCURATE MEDICATION LIST Home Care: * Take your medications exactly as directed. Don't skip doses. * Remember that recovery after a heart attack takes time. Plan to rest for at lease 4-8 weeks while you recover. Then return to normal activity when your doctor says it's okay. * Ask your doctor about joining a heart rehabilitation program. * Tell your doctor if you are feeling depressed. Feelings of sadness are common after a heart attack, but it is important that you speak to someone if you are feeling overwhelmed by these feelings. * If you are having chest pain, call 911 for an ambulance. Do NOT drive yourself to the hospital. * Ask your family members to learn CPR. * Learn to take your own blood pressure and pulse. Keep a record of your results. Ask your doctor when you should seek emergency medical attention. He or she will tell you which blood pressure reading is dangerous. Lifestyle Changes: * Maintain a healthy weight. Get help to lose any extra pounds. * Cut back on salt. * Limit canned, dried, packaged, and fast foods. * Don't add salt to your food. * Season foods with herbs instead of salt when you cook. * Break the smoking habit. Enroll in a stop-smoking program to improve your chances of success. * Limit fatty foods. * Ask your doctor about having your lipid levels checked regularly. * Build up your activity according to your doctor's recommendation. * Ask your doctor when it's okay to resume sexual activity. * Tell your doctor about any erectile dysfunction (ED) medication you are taking. Some ED medications are not safe if you take certain heart medications. * Try to manage stress. Follow Up: It is important for you to keep your follow up appointments with your medical provider. Current Hospital Diet Patient's current hospital diet: AHA Diet (Heart Healthy) Discharge Diet Recommended Diet: AHA Diet (Heart Healthy) Procedures Procedures Performed: Cardiac Cath Pending Studies Studies pending at discharge: no Laboratory Results Lipid Panel Test 04/06/17 05:30 Range/Units Triglycerides Level 529 H 0-150 mg/dl Cholesterol Level 211 H 0-200 mg/dl HDL Cholesterol 23 mg/dl Cholesterol/HDL Ratio 9.2 LDL Cholesterol, Calculated mg/dl Medical Emergencies . Who to Call and When: Medical Emergencies: If at any time you feel your situation is an emergency, please call 911 immediately. . Non-Emergent Contact Non-Emergency issues call your: Primary Care Provider, Oil Deliverer Call Non-Emergent contact if: you have a fever, your pain is not controlled, your pain is worsening, your pain is unusual for you, your pain is concerning you, you have any medication questions . . "Provider Documentation" section prepared by Jasiel Julio. . Core Measure Problem Core Measures: AMI AMI Core Measures Reason no ASA as I/P: Treatment provided - N/A Reason no ASA at D/C: Treatment provided - N/A Reason no statin as I/P: Treatment provided - N/A Reason no statin at D/C: Treatment provided - N/A
[2017-04-06] MEDS ORDERED: IV FLUIDS COMPLETED PRN (16:20)
[2017-04-07] MEDS ORDERED: ATORVASTATIN 40 MG TAB PO SCH (09:00)
== END 2017-04-06 16:20 | disposition short-term general hospital (02) | DRG 282 ==
LOC: C.EDB 04:14 → C.2T 05:58 → ENRESERV 06:42 → OBSVTOIN 04-06 10:25
PROVIDERS: ADMIT Internal Medicine; ATTEND Internal Medicine
PROC: 4A023N7 Measurement of Cardiac Sampling and Pressure, Left Heart, Percutaneous Approach (ICD-10-PCS; principal; 2017-04-06 08:00)
PROC: B215YZZ Fluoroscopy of Left Heart using Other Contrast (ICD-10-PCS; principal; 2017-04-06 08:00)
PROC: B211YZZ Fluoroscopy of Multiple Coronary Arteries using Other Contrast (ICD-10-PCS; principal; 2017-04-06 08:00)
DX: I21.4 Non-ST elevation (NSTEMI) myocardial infarction (principal); I16.0 Hypertensive urgency; I11.9 Hypertensive heart disease without heart failure; I25.10 Atherosclerotic heart disease of native coronary artery without angina pectoris; G47.30 Sleep apnea, unspecified; E78.5 Hyperlipidemia, unspecified; E66.9 Obesity, unspecified; Z68.30 Body mass index [BMI] 30.0-30.9, adult; Z87.39 Personal history of other diseases of the musculoskeletal system and connective tissue; Z82.49 Family history of ischemic heart disease and other diseases of the circulatory system